=== PATIENT | female | born 1950 | race Caucasian/White ===

== ENCOUNTER 2024-07-05 20:24 | Inpatient (IN) | payer MEDICARE, MEDICAID ==
[~2024-07-05] VITALS: Ht 142.2 cm; Wt 136.0 kg
--- NOTE | 2024-07-05 20:44 | Physician Documentation ---
History of Present Illness ~ Chief Complaint: Ingestion Error Stated Complaint: BRADYCARDIC Time Seen by MD: 20:29 HPI This is a 74-year-old female who was transferred to us from outside facility for symptomatic bradycardia. The patient is a very poor historian. 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 It appears that the patient has a gone to the outside facility with the original call for lift assist. They noted that she was altered. It appears that she took too much of Robaxin, gabapentin, Lyrica to treat her chronic back pain/fibromyalgia. Subsequent to that they have discovered with the patient is bradycardic. She was symptomatic to it it is failure thing chest pain. At the advice of the poison control that started patient on a epinephrine drip, as she did respond to a push dose of epinephrine. However, with a push dose of epinephrine she became markedly symptomatic to the medication itself experiencing worsening chest discomfort and diaphoresis. At the time of my examination today, the patient has a no somatic complaints. She states that once her heart rate got above 63 she feels better. It appears the patient is a Syn[employer]. Records from outside facility reviewed. Per outside facility HPI �the patient is a 74-year-old female who originally was called for lift assist has a has been could not get her off the ground but noticed that she has been taking his Robaxin which the patient says she was taking for back pain usually except for this morning she was hooked three-1/2 because her back pain was particularly worse than normal although she denies any bowel or bladder symptoms. She also took her normal medications she denies taking opioids. Medics noted the patient to be dysarthric and intoxicated. Patient then noted to them that she would taken pills. She denies any suicidal or homicidal ideation she said she was taking because her back hurt and she thought she needed more than usual dose even though they were not hers . Signs were stable Blood glucose about 200 � EKG from outside facility reviewed and interpreted by myself shows sinus bradycardia, rate of 40, prolonged AL interval with a first-degree AV block, narrow QRS, no QT prolongation, borderline left axis, T-wave inversion only three noted. No STEMI. Patient was given Narcan without any success at the outside facility. She also was noted to have chest pain and exertional while bradycardic in the 40s Laboratory studies from outside facility showed WBC of 6.4, hemoglobin of 11.6, hematocrit 37%, platelets 198, 84% neutrophils. Urinalysis was contaminated on nondiagnostic. Toxicology panel was positive for tricyclics. CK was normal at this 80. BNP was normal at 24. Metabolic panel notable only for alkaline phosphatase elevation at 246. Creatinine was normal at 1.04. TSH was normal. Medication Reconciliation Allergies: Coded Allergies: atorvastatin (Verified Allergy, Unknown, 07/05/24) codeine (Verified Allergy, Unknown, 07/05/24) hydralazine (Verified Allergy, Unknown, 07/05/24) morphine (Verified Allergy, Unknown, 07/05/24) Review of Systems ROS 10 point review of systems was performed and unless noted above in HPI is negative for acute process/complaint. Physical Exam Vital Signs: Temperature: 98.0, Source: Oral, Heart Rate: 62, Respiratory Rate: 20, BP: 124/46, Pulse Oximetry: 100, Weight: 136.000 Physical Exam GENERAL: Awake, alert, oriented, GCS 15, no apparent distress, non-toxic appearing, answers questions, follows commands appropriately. Examined in bed 1. HEENT: Atraumatic, normocephalic, pupils equal, extraocular muscles intact, sclerae anicteric, mucus membranes moist, oropharynx is clear, no stridor. NECK: supple, full active range of motion, trachea midline, no thyromegaly, no lymphadenopathy, no JVD. CARDIOVASCULAR: regular rate/rhythm, no murmurs/gallops/rubs, Pulses are 2+ in all extremities and symmetric. Capillary refill less than 2 seconds. PULMONARY: Nonlabored, good air movement ,no respiratory distress, speaking in full sentences, clear to auscultation bilaterally, no wheezing, no ronchi, no rales, no accessory muscle use. GASTROINTESTINAL: Soft, non-tender, non-distended, normal active bowel sounds, no organomegaly, no pulsatile masses, no CVA tenderness. NEUROLOGIC: Lucid with normal mental status. Normal facial symmetry. Moves all extremities symmetrically and with purpose. No truncal ataxia. Speech is fluid without evidence of dysarthria or aphasia, no focal deficits appreciated. MUSCULOSKELETAL: There is full range of motion of all extremities. There is no joint pain or joint swelling or joint erythema. There is no muscle pain or tenderness or swelling. EXTREMITIES: warm, well-perfused, no cyanosis, no clubbing, no edema, no acute deformities. Skin: warm, dry, no rashes or lesions, no jaundice, no petechiae orpurpura. No ecchymosis. PSYCHIATRIC: Normal affect, normal insight, normal concentration. Focused exam: [] Progress Results/Orders Results/Orders Orders - JAMILA MEADOWS DO Hs Troponin I W Calculations (07/05/24 22:42) Chest,Single View (07/05/24 20:51) Page Hospitalist (07/05/24 21:30) Fill Out Med Reconciliation (07/05/24 21:30) Cta Chest Pe (07/05/24 ) Completed Orders - JAMILA MEADOWS DO Electrocardiogram (07/05/24 20:42) Cbc/Diff (07/05/24 20:42) D-Dimer (07/05/24 20:42) Pt Inr (07/05/24 20:42) PTT (07/05/24 20:42) PBNP (07/05/24 20:42) MG (07/05/24 20:42) Normal Saline 1000ml (Sodium Chloride 10 (07/05/24 20:45) CMP (07/05/24 20:42) Hs Troponin I W Calculations (07/05/24 20:42) Chest,Single View (07/05/24 20:51) Medications Received in ER Medications (Trade) Dose Ordered Sig/Stephanie Route PRN Reason Start Time Stop Time Status Last Admin Dose Admin (sodium chloride 1000ml IV soln) 500 ml ONCE ONCE IVB 07/05/24 20:45 07/05/24 20:46 DC 07/05/24 21:07 500 ML Vital Signs 07/05/24 20:26 Temp 98.0 Pulse 62 Resp 20 B/P (MAP) 124/46 Pulse Ox 100 Laboratory Tests Test 07/05/24 20:52 White Blood Count 5.0 Red Blood Count 4.16 L Hemoglobin 12.6 Hematocrit 37.8 Mean Corpuscular Volume 90.8 Mean Corpuscular Hemoglobin 30.4 Mean Corpuscular Hemoglobin Concent 33.5 Red Cell Distribution Width 14.5 Platelet Count 223 Mean Platelet Volume 6.8 L Neutrophils (%) (Auto) 80.5 H Lymphocytes (%) (Auto) 12.6 L Monocytes (%) (Auto) 5.3 Eosinophils (%) (Auto) 0.7 Basophils (%) (Auto) 0.9 Neutrophils # (Auto) 4.1 Lymphocytes # (Auto) 0.6 L Monocytes # (Auto) 0.3 Eosinophils # (Auto) 0.0 Basophils # (Auto) 0.0 CBC Comment Prothrombin Time 10.4 INR International Normalized Ratio 1.0 Activated Partial Thromboplast Time 28 D-Dimer 4.39 H D-Dimer Comment Coagulation Comments Sodium Level 142 Potassium Level 3.5 Chloride Level 104 Carbon Dioxide Level 25.0 Anion Gap 13 Blood Urea Nitrogen 19 H Creatinine 0.94 H Estimated GFR/1.73 m2 58 BUN/Creatinine Ratio 20.2 H Glucose Level 147 H Calcium Level 8.8 Magnesium Level 1.9 Total Bilirubin 0.5 Aspartate Amino Transf (AST/SGOT) 24 Alanine Aminotransferase (ALT/SGPT) 21 Alkaline Phosphatase 96 Troponin I High Sensitivity 17 Pro-B-Type Natriuretic Peptide 149 Total Protein 7.0 Albumin 3.4 Globulin 3.6 Albumin/Globulin Ratio 0.9 L Chemistry Comments EKG/XRAY/CT/US/VASC/MRI EKG : Additional Comment EKG was obtained and interpreted by myself shows sinus bradycardia, rate of 54, normal AL interval, narrow QRS, no QT prolongation, normal axis, no STEMI. R esolution of T-wave inversion in three. Medical Decision Making Findings Facility Status: ED Holds, [facility] process The plan was discussed with the patient, who demonstrates clear understanding of the plan and is in agreement with the plan unless otherwise noted in the chart. All questions have been answered, all concerns were addressed unless otherwise documented. I was available throughout their ED stay for frequent reassessment and questions. Differential Diagnoses (considered and possible or likely): [Symptomatic bradycardia including sinus bradycardia, second-degree or third-degree block, AFib, a flutter. Unlikely to represent ventricular arrhythmia] additionally ingestion error/medication overdoses in differential given her consumption of Robaxin/gabapentin/Lyrica. Chronic back pain is also in differential. ??Differential Diagnoses (considered and unlikely, not requiring evaluation currently): [See above] MDM Data Please see HPI for the following: Independent Historians and external Records Review. Historian: Limited information from patient. Independent Historians: ?[[employer] crew, record review] Medication Management: [Reviewed medication list] Social History and determinants: [Reviewed] Please see the body of the note for the following: Any independent interpretations of ECG, imaging studies. All vitals signs/haemodynamics, ordered tests were independently reviewed and interpreted by myself. Nursing triage complaint and vitals reviewed, additional nursing notes were reviewed as available and I agree unless otherwise noted or documented in contradiction in the chart Vital Signs: Independently reviewed Labs: Independently interpreted Imaging: Independently interpreted Old Medical Records: Independently reviewed, see HPI for relevant summary and information Pulse Oximetry: [97%] interpreted as [normal on room air] by me [Health Services Administrator: Bradycardic Rate, Regular rhythm, no ectopy, NSR] reviewed and interpreted by me] Additionally notably showing: [Hemodynamically the patient is stable.] Laboratory workup notable for normal troponin, normal BNP, markedly elevated D- dimer. Chest x-ray is unremarkable. Tests considered but not ordered include: [Initially did not consider CTA, it was obtained after elevated D-dimer] Social Determinants of Health Impact: Patient was evaluated in [facility], [facility] [place] to healthcare due to below par ratio of patient to medical providers. [] Comorbid Conditions Impacting Present Evaluation and Care/Treatment: [Unknown] Management Discussions with other Healthcare Providers: [Hospitalist regarding admission] Treatment and Disposition Medication Management (Given or considered): [Fluid resuscitation was provided for treatment of clinically and/or laboratory apparent dehydration.]. See EMR for details Consideration for Hospitalization/Escalation/Deescalation of Care: Admission for observation necessary for further evaluation of her symptomatic bradycardia and elevated D-dimer ?ED Course:?[No clinical deterioration] ?Shared decision making:?[] Code status:?FULL Please see the full Electronic Medical Record for full details of nursing documentation, medications list, other records of complete past medical history and conditions, vital signs, laboratory studies, and any radiologic study interpretations by radiologists. Portions of this note were completed using [employer] dictation software and as a result there may exist minor errors in spelling. I have reviewed elements of past family and social history and agree as included in note. Departure Disposition: 09 ADMITTED INPATIENT Impression: Primary Impression: Symptomatic bradycardia Additional Impressions: Chest pain Elevated d-dimer Accidental methocarbamol overdose Discharge Instructions: Overdose, Accidental Referrals: NO PRIMARY CARE PROVIDER (PCP) Signature Scribe Signature: No scribe Attestation: This note accurately reflects clinical decisions, work performed by myself, DO DORI Starr NICHOLAS M DO July 05, 2024 20:44
[2024-07-05 21:01] LABS: BASOPHILS % (AUTO) 0.9 % (0-1); EOSINOPHILS % (AUTO) 0.7 % (0-6); HEMATOCRIT 37.8 % (35.0-45.0); HEMOGLOBIN 12.6 g/dl (12.0-16.0); LYMPHOCYTES # (AUTO) 0.6 X10'3 (1.1-4.8); LYMPHOCYTES % (AUTO) 12.6 % (21-51); MEAN CORPUSCULAR HEMOGLOBIN 30.4 PG (27.0-31.0); MEAN CORPUSCULAR HGB CONC 33.5 g/dL (33.0-36.5); MEAN CORPUSCULAR VOLUME 90.8 FL (78-98); MEAN PLATELET VOLUME 6.8 FL (7.4-10.4); MONOCYTES # (AUTO) 0.3 X10'3 (0-0.9); MONOCYTES % (AUTO) 5.3 % (2-12); NEUTROPHILS # (AUTO) 4.1 X10'3 (1.8-7.7); NEUTROPHILS % (AUTO) 80.5 % (42-75); PLATELET COUNT 223 X10'3 (140-440); RED BLOOD COUNT 4.16 X10'6 (4.20-5.60); RED CELL DISTRIBUTION WIDTH 14.5 % (11.5-14.5)
--- NOTE | 2024-07-05 21:02 | RADIOLOGY REPORT ---
CHEST RADIOGRAPH Indication: Chest pain Technique: Single frontal view of the chest was obtained COMPARISON: None FINDINGS: Lines and Tubes: None Lungs: Clear Pleura: No effusion. No pneumothorax. Cardiomediastinal contours: Unremarkable IMPRESSION: No abnormality demonstrated.
--- NOTE | 2024-07-05 21:02 | ELECTROCARDIOGRAPH REPORT ---
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 Boyd Healy Measurements Intervals [place] Rate: 54 P: 22 DE: 200 QRS: -27 QRSD: 102 T: 31 QT: 490 QTc: 465 Interpretive Statements Sinus bradycardia Left ventricular hypertrophy Anterior infarct, old Electronically Signed On 07-06-2024 17:20:[address] Boyd Healy Please click the below link to view image of tracing.
[2024-07-05] MEDS: normal saline 1000ML IV soln IVB ONE (21:07)
[2024-07-05 21:12] LABS: APTT 28 SECONDS (22-32); D-DIMER 4.39 MG/L FEU (0-0.50); PROTHROMBIN TIME 10.4 SECONDS (9.0-12.0)
[2024-07-05 21:15] LABS: ALANINE AMINOTRANSFERASE 21 U/L (12-78); ALBUMIN 3.4 G/DL (3.4-5.0); ALBUMIN/GLOBULIN RATIO 0.9 (1.1-1.5); ALKALINE PHOSPHATASE 96 IU/L (46-116); ANION GAP 13 (8-16); ASPARTATE AMINO TRANSFERASE 24 U/L (10-37); BILIRUBIN,TOTAL 0.5 MG/DL (0.1-1.0); BLOOD UREA NITROGEN 19 MG/DL (7-18); BUN/CREATININE RATIO 20.2 (10.0-20.0); CALCIUM 8.8 MG/DL (8.5-10.1); CHLORIDE 104 MMOL/L (99-107); CREATININE 0.94 MG/DL (0.40-0.90); GLUCOSE 147 MG/DL (70-104); POTASSIUM 3.5 MMOL/L (3.5-5.1); SODIUM 142 MMOL/L (135-145); eCRCL 29 ML/MIN; eGFR 58 ML/MIN
[2024-07-05 21:24] LABS: MAGNESIUM 1.9 MG/DL (1.5-2.4); PRO BRAIN NATRIURETIC PEPTIDE 149 PG/ML (0-450)
[2024-07-05] MEDS ORDERED: iohexol 350MG/ML 100ml bottle IV ONE (21:36)
--- NOTE | 2024-07-05 22:46 | RADIOLOGY REPORT ---
CTA Chest with intravenous contrast INDICATION: Chest pain, elevated D-dimer COMPARISON: None TECHNIQUE: Multidetector spiral CTA of the chest was performed of the chest with intravenous contrast . PULMONARY ANGIOGRAPHY PROTOCOL was utilized using a bolus-tracking technique centered on the main p ulmonary artery. Axial, coronal and sagittal multiplanar and MIP reformats were performed. Radiation Dose : 1. Chest: CTDI volume is 03/23/2035 mGy. Dose-length product is 694.70 mGy*cm The dose indicators for CT are the volume Computed Tomography (CT) Dose Index (CTDIvol) and the Dose Length Product (DLP), and are measured in units of mGy and mGy-cm, respectively. These indicators are not patient dose, but values generated from the CT scanner acquisition factors. The report includes radiation exposure data for exposures received during this examination. Findings: Pulmonary artery: Lower neck: Normal thyroid. Lungs and Pleura: Unremarkable Heart/Vascular Structures: Unremarkable Lymph Nodes: No adenopathy Musculoskeletal: No acute osseous abnormality. The kyphosis of the midthoracic spine. Soft tissues: Normal. Upper abdomen: Limited portions of the upper abdomen are unremarkable. Gallbladder is surgically abse nt with clips in the gallbladder fossa. IMPRESSION: 1. No pulmonary embolism. 2. No acute thoracic finding.
[2024-07-05] MEDS ORDERED: magnesium Cl slow-release 64mg tablet PO PRN (22:50)
[2024-07-05] MEDS ORDERED: magnesium sulf-water 2g/50mL 50 ML IV PRN (22:50)
[2024-07-05] MEDS ORDERED: magnesium hydroxide 30ml (MOM) UD suspension PO PRN (22:50)
[2024-07-05] MEDS ORDERED: magnesium sulf-water 4G/100mL 100 ML IV PRN (22:50)
[2024-07-05] MEDS ORDERED: potassium Cl 20 mEq SR tablet PO PRN ×2 (22:50)
[2024-07-05] MEDS ORDERED: ondansetron/PF 4mg/2ml inj IV PRN (22:50)
[2024-07-05] MEDS ORDERED: mag hydrox/Alum hydrox/simeth 30ml oral suspension PO PRN (22:50)
[2024-07-05] MEDS ORDERED: potassium Cl 40MEQ/1/2NS 520ml 520 ML IV PRN (22:50)
[2024-07-05] MEDS ORDERED: acetaminophen 325mg tablet PO PRN (22:50)
[2024-07-05] MEDS ORDERED: TRIA454O TOP (22:55)
[2024-07-05] MEDS ORDERED: LEVO112T5 PO (22:55)
[2024-07-05] MEDS ORDERED: GABA-535 PO (22:55)
[2024-07-05] MEDS ORDERED: MILN50TA PO (22:55)
[2024-07-05] MEDS ORDERED: AMLO5TAB16 PO (22:55)
[2024-07-05] MEDS ORDERED: ALLO100T PO (22:55)
[2024-07-05] MEDS ORDERED: GLIP10TA18 PO (22:55)
[2024-07-05] MEDS ORDERED: OMEP40CA21 PO (22:55)
[2024-07-05] MEDS ORDERED: METF-438 PO (22:55)
[2024-07-05] MEDS ORDERED: TIZA-205 PO (22:55)
[2024-07-05] MEDS ORDERED: PREG150C47 PO (22:55)
[2024-07-05] MEDS ORDERED: DOXE3TAB4 PO (22:55)
[2024-07-05] MEDS: normal saline 1000ml 1,000 ML IV SCH (22:57)
[2024-07-05 23:08] LABS: HEMOGLOBIN A1C 6.5 % (4.5-6.2)
--- NOTE | 2024-07-05 23:51 | HISTORY AND PHYSICAL-Residence ---
History & Physical Providers to CC Resident Creating Document: CARLOS DANIELS, RES ~ History of Present Illness Primary Medical Doctor: Dr. Vu. Castro Franco Reason for Admit\Complaint: Bradycardia History of Present Illness PCP: Dr. Vu. Castro Franco 74-year-old female patient with past medical history of diabetes, hypertension, fibromyalgia, chronic pain, hypothyroidism came to the hospital transferred from [facility] with chief complaint of symptomatic bradycardia. The patient mentioned that she was taken to the hospital unconscious. The patient was taken to the hospital after her called for assist when he could not get her off the ground but noticed that she had been taking his Robaxin which the patient says she will taking for back pain usually. She endorses that this morning particularly her back pain was worse. She also took her normal medications, she denies taking opiates. Upon arrival of paramedics she was noted to be dysarthric and intoxicated. The patient denies any suicidal or homicidal ideations she said that she was talking because her back heart and she thought she needs more than usual dose even though they were not hers. The patient mentioned that after 15 minutes she took her medication she passed out, feeling dizzy, lightheaded, sweaty and when she woke up she was already in the hospital. The patient currently denies chest pain, palpitations, dizziness, lightheadedness. Upon arrival in the emergency department of [facility] she received Narcan, gastric lavage. Due to her bradycardia the patient was transferred to this hospital. Allergies: Coded Allergies: atorvastatin (Verified Allergy, Unknown, 07/05/24) codeine (Verified Allergy, Unknown, 07/05/24) hydralazine (Verified Allergy, Unknown, 07/05/24) morphine (Verified Allergy, Unknown, 07/05/24) Home Medications Home Medications Active Reported Triamcinolone Acetonide 0.1 % Oint...g. 1 Applic TOP DAILY Zanaflex (Tizanidine Hcl) 4 Mg Tablet 1 Tab PO BID Gabapentin 400 Mg Capsule 1 Cap PO TID Prilosec (Omeprazole) 40 Mg Capsule 1 Cap PO DAILY Metformin HCl 1,000 Mg Tablet 1 Tab PO TID Zyloprim* (Allopurinol) 100 Mg Tablet 1 Tab PO DAILY Pregabalin 150 Mg Capsule 1 Cap PO BID Levothyroxine Sodium 112 Mcg Tablet 1 Tab PO DAILY Doxepin HCl 3 Mg Tablet 1 Tab PO DAILY Amlodipine Besylate 5 Mg Tablet 1 Tab PO DAILY Glipizide 10 Mg Tablet 1 Tab PO DAILY Savella (Milnacipran Hcl) 50 Mg Tablet 1 Tab PO BID Past Medical History Past Medical History Diabetes mellitus. Hypertension. Fibromyalgia. Lipids sickness. Hypothyroidism. Past Surgical History Surgical History Comment Hysterectomy and oophorectomy. Right ankle orthopedic surgery. Cholecystectomy. Appendectomy. Past Social History Smoking: Quit greater than 1 year (The patient quit smoking 40 years ago she used to smoke two packs per day for 15 years.) Alcohol Use: Rarely Drug Use: None (The patient mentioned that she used marijuana as a teenager one time.) Lives with: Spouse Lives In: Home, Other ROS All Other Systems: Reviewed and Negative Exam Vitals: Vital Signs Date Time Temp Pulse Resp B/P (MAP) Pulse Ox O2 Delivery O2 Flow Rate FiO2 07/05/24 22:55 60 14 128/90 (103) 100 07/05/24 20:26 98.0 Physical exam: General: Well alert, well oriented, not confused, not agitated, not in acute distress, well cooperated during the physical. HEENT: Conjunctive are pink, sclerae clear, no icterus, pupil is equal in both sides, reactive to light, no ear discharge, no pharyngeal erythema or an edema. Neck: Supple, no JVD, no lymphadenopathy and thyromegaly. Chest: Equal air entry on both lungs, presence of mild rhonchus in bilateral bases, no wheezing at the moment. Cardiovascular: S1-S2 regular sinus rhythm and, regular rate, no gallops, no rubs, no murmurs Abdomen: No visible peristalsis, Bowel sounds present on auscultation, soft, nontender, no guarding, no rigidity Extremities: No obvious deformities, no pitting edema bilaterally, capillary refill intact, peripheral pulsations are intact on both sides. Presence of dermatitis stasis changes in bilateral lower extremities. Central Nervous System: No focal neurological deficits, no motor or sensory weakness in all 4 extremities, could move all 4 extremities, 2+ deep tendon reflexes, negative Babinski. Musculoskeletal: No joint swelling, deformities, inflammations, and no scoliosis and back tenderness Skin: Warm and dry. Diagnostic Data Last Recorded Lab Results: 07/05/24205107/05/242051 Diagnostic Data: Laboratory Tests Test 07/05/24 20:52 Prothrombin Time 10.4 SECONDS (9.0-12.0) INR International Normalized Ratio 1.0 INR Activated Partial Thromboplast Time 28 SECONDS (22-32) D-Dimer 4.39 MG/L FEU (0-0.50) H D-Dimer Comment Coagulation Comments Advance Care Planning Advanced Care plannin - 30 Minutes (I spent a total of 17 minutes on reviewing various resuscitative measures/ACP with the patient at the time of admission. The patient has decided on a full code status.) Additional Plan Assessment and plan: 74-year-old female patient came to the hospital with chief complaint of symptomatic bradycardia after accidental ingestion of Robaxin. Toxicologic encephalopathy: Symptomatic bradycardia: The patient endorses that she was taking more doses of Robaxin due to worse back pain during the morning. The patient was evidenced unconscious by her and taken to the hospital. EKG: Sinus bradycardia with first-degree block with VT interval of 226, heart rate of 50. Current heart rate 64. Avoid thee agents. Atropine 1 mg IV if heart rate drops below 35. The patient received gastric lavage at the other facility. Close monitoring on telemetry. Pulmonary embolism-ruled out: D-dimer: 4.39. Chest CTA: No pulmonary embolism. No acute thoracic finding. Possible SPENCER likely secondary to renal tubular stasis: Creatinine 0.84, GFR 58, BUN/creatinine ratio 20.2. Follow-up urine lytes. NS at 50 mL/hour. Diabetes mellitus: Glucose levels 147. Hemoglobin A1c 6.5. Hyperglycemia/hypoglycemia protocol in place. Medium dose short-acting insulin sliding scale. Fibromyalgia: Chronic back pain: We are holding gabapentin, pregabalin, methocarbamol that were suspicion of intoxication. Code status: Full code DVT prophylaxis: Heparin Analgesia/sedation: [place] Line/tube: PIV GI prophylaxis: Protonix Nutrition: 75 carb controlled diet PT: Ordered Prognosis: Guarded Disposition: The patient will be admitted to PCU with telemetry. Carlos Art Internal Medicine Resident [facility] Date of Service: July 05, 2024 Billing Provider: KAROL HORN MD,CARLOS MADSEN, RES July 05, 2024 23:51
[2024-07-06] VITALS (7 sets, daily range): BP systolic 115–165; BP diastolic 39–91; PULSE 68–98; RESP 16–26; TEMP 97.6–98.2; O2SAT 94–97
[2024-07-06] MEDS ORDERED: DEXTROSE 15 GM of carb/4 tabs (each vial/BOTTLE has 4 tablets) PO PRN ×2 (02:25)
[2024-07-06] MEDS ORDERED: glucagon, human recombinant 1mg kit SUBCUT PRN (02:25)
[2024-07-06] MEDS ORDERED: dextrose 50%-water 50ml dispensing syringe IV PRN ×2 (02:25)
[2024-07-06 02:38] LABS: BASOPHILS # (AUTO) 0.1 X10'3 (0-0.2); BASOPHILS % (AUTO) 0.9 % (0-1); EOSINOPHILS # (AUTO) 0.1 X10'3 (0-0.9); EOSINOPHILS % (AUTO) 1.8 % (0-6); HEMATOCRIT 37.3 % (35.0-45.0); HEMOGLOBIN 12.4 g/dl (12.0-16.0); LYMPHOCYTES # (AUTO) 0.6 X10'3 (1.1-4.8); LYMPHOCYTES % (AUTO) 9.5 % (21-51); MEAN CORPUSCULAR HGB CONC 33.3 g/dL (33.0-36.5); MEAN CORPUSCULAR VOLUME 90.3 FL (78-98); MEAN PLATELET VOLUME 6.8 FL (7.4-10.4); MONOCYTES # (AUTO) 0.4 X10'3 (0-0.9); MONOCYTES % (AUTO) 6.1 % (2-12); NEUTROPHILS # (AUTO) 5.1 X10'3 (1.8-7.7); NEUTROPHILS % (AUTO) 81.7 % (42-75); PLATELET COUNT 235 X10'3 (140-440); RED BLOOD COUNT 4.14 X10'6 (4.20-5.60); RED CELL DISTRIBUTION WIDTH 14.3 % (11.5-14.5); WHITE BLOOD COUNT 6.3 X10'3 (4.5-11.0)
[2024-07-06] MEDS ORDERED: atropine 0.1mg/ml 10ml syringe IV PRN (02:40)
[2024-07-06 03:06] LABS: ALANINE AMINOTRANSFERASE 20 U/L (12-78); ALBUMIN 3.4 G/DL (3.4-5.0); ALKALINE PHOSPHATASE 100 IU/L (46-116); ANION GAP 13 (8-16); ASPARTATE AMINO TRANSFERASE 26 U/L (10-37); BILIRUBIN,TOTAL 0.6 MG/DL (0.1-1.0); BLOOD UREA NITROGEN 15 MG/DL (7-18); BUN/CREATININE RATIO 20.5 (10.0-20.0); CALCIUM 8.8 MG/DL (8.5-10.1); CHLORIDE 105 MMOL/L (99-107); CREATININE 0.73 MG/DL (0.40-0.90); GLUCOSE 133 MG/DL (70-104); MAGNESIUM 1.8 MG/DL (1.5-2.4); POTASSIUM 3.6 MMOL/L (3.5-5.1); SODIUM 144 MMOL/L (135-145); TOTAL CARBON DIOXIDE 25.6 MMOL/L (24-32); TOTAL PROTEIN 6.9 G/DL (6.4-8.2); eCRCL 38 ML/MIN; eGFR 78 ML/MIN
[2024-07-06] MEDS: hydrALAZINE 20mg/ml inj. IV ONE (03:28)
[2024-07-06] MEDS: HYDROcodone/acetaminophen 5mg/325mg tablet PO ONE (04:58)
[2024-07-06 07:03] LABS: URINE AMPHETAMINE SCREEN NEGATIVE (Neg); URINE BARBITUATE SCREEN NEGATIVE (Neg); URINE BENZODIAZEPINES SCREEN NEGATIVE (Neg); URINE CANNABINOID SCREEN NEGATIVE (Neg); URINE COCAINE SCREEN NEGATIVE (Neg); URINE METHADONE SCREEN NEGATIVE (Neg); URINE OPIATE SCREEN NEGATIVE (Neg); URINE PHENCYCLIDINE SCREEN NEGATIVE (Neg)
[2024-07-06] MEDS: levoTHYROXINE 112mcg tablet PO SCH (07:20)
[2024-07-06] MEDS: docusate sod 100mg capsule PO SCH (07:20)
[2024-07-06] MEDS: amLODIPine 5mg tablet PO SCH (07:21)
[2024-07-06] MEDS: tizanidine 4mg tablet PO SCH (07:22)
[2024-07-06] MEDS: pantoprazole 40mg Tablet.DR PO SCH (07:22)
[2024-07-06] MEDS: INSULIN LISPRO 100 UNIT/ML INSULN.PEN MULTI-DOSE SQ SCH (07:24)
[2024-07-06] MEDS: allopurinol 100mg tablet PO SCH (07:25)
[2024-07-06] MEDS: MILNACIPRAN HCL PO SCH (08:00)
[2024-07-06] MEDS: K and/or MAG REPLACEMENT MC SCH (08:00)
[2024-07-06] MEDS: DOXEPIN HCL PO SCH (08:00)
--- NOTE | 2024-07-06 20:31 | PROGRESS NOTE ---
Daily Progress Note Providers to CC ~ Antibiotic Timeout Antibiotic Ordered?: No Subjective Patient continues to complain of bilateral chest wall pain greater on the left surgeon troponins were negative has and the patient has not been bradycardic the entire time he she has been hospitalized here at [facility]. The patient's mentation is improving Objective Vital Signs Date Time Temp Pulse Resp B/P (MAP) Pulse Ox O2 Delivery O2 Flow Rate FiO2 07/06/24 15:00 97.8 68 16 115/39 (64) 94 Room Air 07/06/24 00:42 0 Result Diagram: 07/06/2422507/06/24225 Gen. No acute distress alert and oriented �4 Lungs clear to ascultation bilaterally, no wheezes rales or rhonchi appreciated Heart normal sinus rhythm no murmurs rubs or clicks noted Abdomen soft nontender bowel sounds are normoactive Lower extremities no clubbing cyanosis, nor edema appreciated bilaterally Coagulation Studies Laboratory Tests Test 07/05/24 20:52 Prothrombin Time 10.4 SECONDS (9.0-12.0) INR International Normalized Ratio 1.0 INR Activated Partial Thromboplast Time 28 SECONDS (22-32) D-Dimer 4.39 MG/L FEU (0-0.50) H D-Dimer Comment Coagulation Comments Problem\Assessment\Plan Problems/Diagnosis: (1) Symptomatic bradycardia # toxic encephalopathy secondary to overuse of Robaxin- The patient's has been gave her a couple of extra tablets of Robaxin due to exacerbation of fibromyalgia Status post gastric lavage is resolving # symptomatic bradycardia on a electronic device monitor Has not been bradycardic the entire hospitalization # [id number] diabetes mellitus and a hyper and hypoglycemic protocol # significantly elevated D-dimer at 4.39 CTA of the chest was negative for PE # mild renal insufficiency on admission- Daily CMP to monitor for SPENCER. # chest wall pain consistent with intercostal ribcage drain High Sensitivity troponins were negative Awaiting physical therapy evaluation # DVT prophylaxis SQ heparin Disposition: Awaiting PT evaluation Date of Service: July 06, 2024 Billing Provider: HUMZA BULL DO Common Visit Codes: [id number] INP/OBS CARE(HIGH) HUMZA BULL DO July 06, 2024 20:31
[2024-07-06] MEDS: HYDROcodone/acetaminophen 5mg/325mg tablet PO PRN (20:57)
[2024-07-06 22:00] LABS: CHOL/HDL RATIO 5.3 (0.00-4.99); CHOLESTEROL 359 MG/DL (0-200); HDL CHOLESTEROL 68 MG/DL (35-60); LDL CHOLESTEROL 239 MG/DL (50-100); TRIGLYCERIDES 178 MG/DL (20-135)
[2024-07-06] MEDS: simethicone 80mg chew tab PO ONE (23:30)
[2024-07-06] MEDS: heparin, porcine 5000 units/ml vial SQ SCH (23:31)
[2024-07-07 01:45] LABS: BASOPHILS # (AUTO) 0.1 X10'3 (0-0.2); BASOPHILS % (AUTO) 1.4 % (0-1); EOSINOPHILS # (AUTO) 0.2 X10'3 (0-0.9); EOSINOPHILS % (AUTO) 2.8 % (0-6); HEMATOCRIT 35.9 % (35.0-45.0); HEMOGLOBIN 12.1 g/dl (12.0-16.0); LYMPHOCYTES # (AUTO) 1.4 X10'3 (1.1-4.8); LYMPHOCYTES % (AUTO) 23.6 % (21-51); MEAN CORPUSCULAR HEMOGLOBIN 30.3 PG (27.0-31.0); MEAN CORPUSCULAR HGB CONC 33.8 g/dL (33.0-36.5); MEAN CORPUSCULAR VOLUME 89.7 FL (78-98); MONOCYTES # (AUTO) 0.4 X10'3 (0-0.9); MONOCYTES % (AUTO) 6.8 % (2-12); NEUTROPHILS # (AUTO) 3.8 X10'3 (1.8-7.7); NEUTROPHILS % (AUTO) 65.4 % (42-75); PLATELET COUNT 255 X10'3 (140-440); RED CELL DISTRIBUTION WIDTH 14.4 % (11.5-14.5); WHITE BLOOD COUNT 5.8 X10'3 (4.5-11.0)
[2024-07-07 01:54] LABS: ALANINE AMINOTRANSFERASE 22 U/L (12-78); ALBUMIN 3.5 G/DL (3.4-5.0); ALBUMIN/GLOBULIN RATIO 0.9 (1.1-1.5); ALKALINE PHOSPHATASE 97 IU/L (46-116); ANION GAP 12 (8-16); ASPARTATE AMINO TRANSFERASE 31 U/L (10-37); BILIRUBIN,TOTAL 0.6 MG/DL (0.1-1.0); BLOOD UREA NITROGEN 15 MG/DL (7-18); BUN/CREATININE RATIO 13.4 (10.0-20.0); CALCIUM 8.9 MG/DL (8.5-10.1); CHLORIDE 105 MMOL/L (99-107); CREATININE 1.12 MG/DL (0.40-0.90); GLUCOSE 196 MG/DL (70-104); MAGNESIUM 1.7 MG/DL (1.5-2.4); POTASSIUM 3.6 MMOL/L (3.5-5.1); SODIUM 145 MMOL/L (135-145); TOTAL CARBON DIOXIDE 27.8 MMOL/L (24-32); TOTAL PROTEIN 7.3 G/DL (6.4-8.2); eCRCL 24 ML/MIN; eGFR 47 ML/MIN
[2024-07-07 02:00] VITALS: BP 149/71; PULSE 81; RESP 18; TEMP 97.9; O2SAT 96
[2024-07-07 06:00] VITALS: BP 156/76; PULSE 75; RESP 19; TEMP 97.9; O2SAT 99
--- NOTE | 2024-07-07 07:12 | ELECTROCARDIOGRAPH REPORT ---
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 ROHIT Valiente Measurements Intervals [place] Rate: 85 P: 31 MD: 179 QRS: -26 QRSD: 92 T: 32 QT: 385 QTc: 458 Interpretive Statements Age not entered, assumed to be 48 years old for purpose of ECG interpretation Sinus rhythm Anterior infarct, old Electronically Signed On 07-07-2024 19:49:[address] ROHIT Valiente Please click the below link to view image of tracing.
[2024-07-07 08:00] VITALS: RESP 19; O2SAT 99
[2024-07-07] MEDS ORDERED: ROSU20TA98 PO (10:33)
[2024-07-07 11:00] VITALS: BP 130/70; PULSE 73; RESP 16; TEMP 97.4; O2SAT 97
[2024-07-07 15:00] VITALS: BP 163/64; PULSE 72; RESP 16; TEMP 97.7; O2SAT 96
--- NOTE | 2024-07-07 17:48 | DISCHARGE SUMMARY ---
Discharge Summary Providers to CC ~ Discharge Summary Admission Diagnosis: Bradycardia Hospital Course DATE OF ADMISSION: 07/05/2024 DATE OF DISCHARGE: 07/07/2024 Discharge Diagnosis\\Comment: Toxic encephalopathy, symptomatic bradycardia, [id number]-[id number]-ceaeoifsv diabetes mellitus, chest wall pain, severe hypercholesterolemia, Operations\\Procedures: None Consultants: None Complications: None Condition on DC: Stable New Medications: Rosuvastatin Calcium (Rosuvastatin Calcium) 20 Mg Tablet 1 TAB PO HS for 30 Days, #30 TAB 0 Refills Continued Medications: Allopurinol* (Zyloprim*) 100 Mg Tablet 1 TAB PO DAILY Amlodipine Besylate (Amlodipine Besylate) 5 Mg Tablet 1 TAB PO DAILY Doxepin HCl (Doxepin HCl) 3 Mg Tablet 1 TAB PO DAILY Glipizide (Glipizide) 10 Mg Tablet 1 TAB PO DAILY Levothyroxine Sodium (Levothyroxine Sodium) 112 Mcg Tablet 1 TAB PO DAILY Metformin HCl (Metformin HCl) 1,000 Mg Tablet 1 TAB PO TID Milnacipran Hcl (Savella) 50 Mg Tablet 1 TAB PO BID Omeprazole (Prilosec) 40 Mg Capsule 1 CAP PO DAILY Pregabalin (Pregabalin) 150 Mg Capsule 1 CAP PO BID Tizanidine Hcl (Zanaflex) 4 Mg Tablet 1 TAB PO BID Triamcinolone Acetonide (Triamcinolone Acetonide) 0.1 % Oint...g. 1 APPLIC TOP DAILY Discontinued Medications: Gabapentin (Gabapentin) 400 Mg Capsule 1 CAP PO TID Discharge Summary: The patient [facility] under the supervision of MIKA Tarango MD with the following HPI:"74-year-old female patient with past medical history of diabetes, hypertension, fibromyalgia, chronic pain, hypothyroidism came to the hospital transferred from [facility] with chief complaint of symptomatic bradycardia. The patient mentioned that she was taken to the hospital unconscious. The patient was taken to the hospital after her called for assist when he could not get her off the ground but noticed that she had been taking his Robaxin which the patient says she will taking for back pain usually. She endorses that this morning particularly her back pain was worse. She also took her normal medications, she denies taking opiates. Upon arrival of paramedics she was noted to be dysarthric and intoxicated. The patient denies any suicidal or homicidal ideations she said that she was talking because her back heart and she thought she needs more than usual dose even though they were not hers. The patient mentioned that after 15 minutes she took her medication she passed out, feeling dizzy, lightheaded, sweaty and when she woke up she was already in the hospital. The patient currently denies chest pain, palpitations, dizziness, lightheadedness. Upon arrival in the emergency department of [facility] she received Narcan, gastric lavage. Due to her bradycardia the patient was transferred to this hospital."The patient was somewhat somnolent morning of admission however had improved significantly and by the following morning was back to her cognitive baseline she had taken a couple of tablets of her 's baclofen. The patient had had a symptomatic bradycardia initially however during the entire hospitalization the patient was not bradycardic. The patient has a severe hypercholesterolemia her total cholesterol is 359 with an LDL of 239 and HDL 68 the patient is not recall the side-effect she had with atorvastatin thus I recommended the patient is start rosuvastatin since she has a issue previously with a statin I am going to start the patient on 20 mg daily I did instruct the patient that she may need to go to 40 mg in the future and to take Co Q10 to help mitigate any muscle cramping in his stop this medication if she develops muscle cramps. The patient had had chest wall pain when I evaluated her on the left greater than right which was able to be recreated with palpation. Thus the patient has a likely intercostal pain, this was improved at the time of discharge. The patient has oiy-aowifge-ffllkfojn diabetes mellitus and a hemoglobin A1c was 6.5- the patient continues metformin and glipizide. Gen. No acute distress alert and oriented �4 Lungs clear to ascultation bilaterally, no wheezes rales or rhonchi appreciated Heart normal sinus rhythm no murmurs rubs or clicks noted Abdomen soft nontender bowel sounds are normoactive Lower extremities no clubbing cyanosis, nor edema appreciated bilaterally The patient felt ready to be discharged and was medically cleared to be discharged 07/07/2024 The patient was seen and evaluated on day of discharge. Time spent on discharge 40 minutes *Problems/Diagnosis: (1) Symptomatic bradycardia Status: Acute Total Time Spent on D/C: > 30 Minutes Date of Service: July 07, 2024 Billing Provider: HUMZA BULL DO Common Visit Codes: 80938-AMX/OBS DISCH DAY >30min HUMZA BULL DO July 07, 2024 17:48
== END 2024-07-07 16:18 | disposition home or self-care (01) | DRG 917 ==
LOC: ER 20:25 → ED HOLD 22:50 → PCU 3S 07-06 02:36
PROVIDERS: ADMIT Surgery; ATTEND Family Medicine
PROC: B32T1ZZ Computerized Tomography (CT Scan) of Left Pulmonary Artery using Low Osmolar Contrast (ICD-10-PCS; principal; 2024-07-05)
PROC: B3201ZZ Computerized Tomography (CT Scan) of Thoracic Aorta using Low Osmolar Contrast (ICD-10-PCS; 2024-07-05)
PROC: B32S1ZZ Computerized Tomography (CT Scan) of Right Pulmonary Artery using Low Osmolar Contrast (ICD-10-PCS; 2024-07-05)
DX: T42.8X1A Poisoning by antiparkinsonism drugs and other central muscle-tone depressants, accidental (unintentional), initial encounter (principal); G92.8 Other toxic encephalopathy; N17.9 Acute kidney failure, unspecified; E78.00 Pure hypercholesterolemia, unspecified; R07.89 Other chest pain; E11.9 Type 2 diabetes mellitus without complications; M54.9 Dorsalgia, unspecified; E03.9 Hypothyroidism, unspecified; I10 Essential (primary) hypertension; G89.29 Other chronic pain; M79.7 Fibromyalgia; Y92.89 Other specified places as the place of occurrence of the external cause; Z90.49 Acquired absence of other specified parts of digestive tract; Z90.710 Acquired absence of both cervix and uterus; Z87.891 Personal history of nicotine dependence
CPT/HCPCS: 36415; 71045; 71275; 80053; 80061; 80305; 82570; 82948; 83036; 83735; 83880; 83930; 83935; 84133; 84300; 84484; 84540; 85025; 85379; 85610; 85730; 87081; 87207; 93005; 97116; 97161; 97530; 99285; A6212; G0378; J0360; J1644; J7030; Q9967